=== PATIENT | male | born 1955 | race Caucasian/White ===

== ENCOUNTER → 2019-08-03 12:37 | Outpatient (CLI) | payer OTHER ==
[~2019-08-03 12:37] MED LIST: LISINOPRIL-HCT1 EAC8 PO
[2019-08-05 11:35] VITALS: BMI 31.2
== END | disposition home or self-care (01) ==
LOC: D.LABREF 12:37
PROVIDERS: ATTEND Internal Medicine Pulmonary Disease
DX: Z11.59 Encounter for screening for other viral diseases (principal)

== ENCOUNTER 2019-08-05 09:35 | Day surgery (SDC) | payer OTHER ==
[~2019-08-05] VITALS: Ht 172.7 cm; Wt 93.0 kg
[2019-08-05 10:56] LABS: HEMATOCRIT 49.4 % (42.0-54.0); HEMOGLOBIN 16.7 g/dL (13.5-17.5); MCH 29.4 pg (26.0-34.0); MCHC 33.8 g/dL (31.0-37.0); MEAN PLATELET VOLUME 9.3 fL (7.4-10.4); RBC 5.68 10x6/uL (4.20-6.10); RDW 13.1 % (11.5-14.5); WBC 9.2 10x3/uL (4.8-10.8)
[2019-08-05 11:05] LABS: ANION GAP 11.3 mmol/L (8-16); CALCIUM 8.9 mg/dL (8.5-10.1); CARBON DIOXIDE 27.7 mmol/L (21.0-32.0); CREATININE - SERUM 1.3 mg/dL (0.6-1.3)
[2019-08-05 11:35] VITALS: BP 128/82; Ht 172.7 cm; Wt 93.0 kg
--- NOTE | 2019-08-05 17:04 | NUR ---
1415 PT BACK IN ROOM FROM SURGERY HOLDING AREA. SURGERY WAS CANCELLED BY DR LEA FOR AN ABNORMAL EKG AND PT IS TO FOLLOW UP WITH [facility] NEXT WEEK. 1523 AFTER MULTIPLE UNSUCCESSFUL ATTEMPTS TO REACH SOMEONE IN DR JOSEPH OFFICE TO MAKE AN APPT FOR PT, PT WAS DISCHARGED HOME AND HE STATES HE WILL CALL THURSDAY TO MAKE AN APPOINTMENT. PT IS ASYMPTOMATIC. HE DENIES ANY CP OR CHEST DISCOMFORT. PT AND HIS WERE TOLD THAT IF PT DEVELOPS CP,CHEST TIGHTNESS, JAW OR LEFT ARM PAIN, NAUSEA/VOMITING, DIAPHORESIS, TO GO TO THE EMERGENCY ROOM. THEY BOTH VOICE UNDERSTANDING OF THESE INSTRUCTIONS. CONTACT INFORMATION TO REACH DR FRENCH WAS GIVEN TO PT. IV WAS DC'D. AT 1437. CATHETER TIP INTACT. NO BLEEDING AT SITE. BANDAID APPLIED.
== END 2019-08-05 15:23 | disposition home or self-care (01) ==
LOC: D.OPS 09:35 → D.PAN 12:00 → D.OPS 12:00
PROVIDERS: Anesthesiology; ATTEND Podiatrist
DX: M77.31 Calcaneal spur, right foot (principal); M79.671 Pain in right foot; Z53.9 Procedure and treatment not carried out, unspecified reason

== ENCOUNTER → 2019-08-23 09:36 | Outpatient (CLI) | payer OTHER ==
[2019-08-05 11:35] VITALS: BMI 31.2
== END | disposition home or self-care (01) ==
LOC: D.LABREF 09:36
PROVIDERS: ATTEND Podiatrist
DX: Z11.59 Encounter for screening for other viral diseases (principal)

== ENCOUNTER 2019-08-25 10:10 | Day surgery (SDC) | payer OTHER ==
[~2019-08-25] VITALS: Ht 172.7 cm; Wt 94.3 kg
--- NOTE | ~2019-08-25 | OP ---
PATIENT NAME: YULIA ELIZABETH MEDICAL RECORD: [id number] :59 LOCATION:[facility] ADMISSION DATE: SURGEON: DAVID OLIVERA DATE OF OPERATION: 08/25/2019 SURGEON: David Olivera DPM PREOPERATIVE DIAGNOSIS: Retrocalcaneal exostosis, right foot. POSTOPERATIVE DIAGNOSIS: Retrocalcaneal exostosis, right foot. PROCEDURE: Excision of exostosis, right foot. ANESTHESIA: Local with monitored anesthesia care. HEMOSTASIS: Pneumatic calf tourniquet inflated to 250 mmHg. ESTIMATED BLOOD LOSS: Minimal. MATERIALS: A 3-0 Vicryl and 4-0 nylon. INJECTABLES: 10 cc of 0.5% bupivacaine plain. The patient has longstanding history of pain associated with a bony spur on the posterior lateral aspect of the right heel. He has tried wider shoes to no avail. He is here today for a surgical excision of this chronically painful bony prominence. We again reviewed the risks and benefits of the procedure. Complications were discussed. All questions were answered. He was appropriately consented for the above-mentioned procedure. DESCRIPTION OF PROCEDURE: The patient was brought in the operating room, placed on the operating table in a prone position. A timeout was called with Dr. Olivera who identified the patient, the surgical site, and the surgery to be performed. Once appropriate anesthesia was obtained, the foot was prepped and draped in the usual aseptic manner. The pneumatic ankle tourniquet was inflated to 250 mmHg on the well-padded right calf tourniquet. Attention was then directed to the posterior aspect of the right heel where a large bony prominence was identified. A 4-cm linear incision was made directly over this bony prominence. This incision was carried deep to soft tissue with care being taken to retract all vital neurovascular structures. All bleeders were cauterized along the way. During the dissection, copious amounts of tophaceous material was encountered during the dissection. All the tophaceous material was dissected away. The periosteum was then incised on the posterior lateral aspect of the calcaneus. Sharp bony prominence was then noted. Next, utilizing combination of a rongeur and a rasp, all bony prominences were resected. The surgical site was then inspected for any remaining sharp bony prominences and none were noted. The surgical site was then irrigated with copious amounts of normal sterile saline via bulb syringe. The periosteum was then reapproximated and coapted using 3-0 Vicryl. The subQ was then reapproximated and coapted with 3-0 Vicryl. The skin was then reapproximated and coapted with 4-0 nylon. A dressing consisting of Xeroform, 4 x 4's, Kerlix, and Fabian bandage was applied to the right foot. The pneumatic calf tourniquet OPERATIVE REPORT [id number] YULIA ELIZABETH was deflated and capillary refill time was immediate to all digits of the right foot. The patient was discharged home with instructions to ice and elevate the right foot. He has a boot to further help offload the area. He was provided with prescriptions for [place] 7.5/325, ibuprofen 800 mg, and Phenergan 25 mg. There were no complications with this procedure. He has my cell phone number for any after hour difficulties. TRANSINT:[id number] Voice Confirmation ID: [id number] DOCUMENT ID: [id number] DAVID OLIVERA CC: [id number] DICTATION DATE: 08/25/19 [address] TEACHER: 08/25/19 1606 [facility] [place] 08/25/19 [facility] [address] [place] [address]
[2019-08-25 10:29] LABS: HEMOGLOBIN 17.6 g/dL (13.5-17.5); MCH 29.3 pg (26.0-34.0); MCHC 33.8 g/dL (31.0-37.0); MCV 86.7 fL (80.0-100.0); MEAN PLATELET VOLUME 9.8 fL (7.4-10.4); RDW 12.7 % (11.5-14.5); WBC 8.5 10x3/uL (4.8-10.8)
[2019-08-25 10:35] LABS: ANION GAP 7.4 mmol/L (8-16); CALCIUM 9.1 mg/dL (8.5-10.1); CARBON DIOXIDE 33.9 mmol/L (21.0-32.0); CREATININE - SERUM 1.4 mg/dL (0.6-1.3); POTASSIUM - SERUM 4.3 mmol/L (3.5-5.1)
[2019-08-25 10:57] VITALS: Ht 172.7 cm; Wt 94.3 kg
--- NOTE | 2019-08-25 14:20 | NUR ---
PT DC INSTRUCTIONS REVIEWED AT THIS TIME, PT AND FAMILY VERBALIZE UNDERSTANDING. PT IV REMOVED AT THIS TIME, INTACT, NO REDNESS OR SWELLING NOTED AT SITE.
--- NOTE | 2019-08-25 14:45 | NUR ---
PT LEAVING OPS AT THIS TIME VIA WC, NAD NOTED.
== END 2019-08-25 14:45 | disposition home or self-care (01) ==
LOC: D.OPS 10:10 → D.PAN 10:30 → D.OPS 13:00
PROVIDERS: Anesthesiology; ATTEND Podiatrist
DX: M89.9 Disorder of bone, unspecified (principal); M77.31 Calcaneal spur, right foot; M79.671 Pain in right foot; I10 Essential (primary) hypertension; E78.5 Hyperlipidemia, unspecified